=== PATIENT | female | born 1965 | race Caucasian/White ===

== ENCOUNTER 2017-04-24 17:53 | Emergency (ER) | payer OTHER ==
[2017-04-24 17:54] VITALS: BMI 25.7
[2017-04-24 18:08] VITALS: BP 110/72; PULSE 68; RESP 16; TEMP 98.6; O2SAT 100
--- NOTE | 2017-04-24 18:14 | C.PDOC ---
History Of Present Illness 04/24/2017 Shea Soto is a 51 y/o female, who is an employee at [employer] and was exposed to possible scabies four days ago. Patient currently has no symptoms, but wants medical clearance. Time Seen by Provider: 04/24/17 18:05 Chief Complaint (Nursing): Medical Clearance Past Medical History Vital Signs: Last Vital Signs Temp 98.6 F 04/24/17 17:59 Pulse 68 04/24/17 17:59 Resp 16 04/24/17 17:59 BP 110/72 04/24/17 17:59 Pulse Ox 100 04/24/17 18:22 - Medical History PMH: Chronic Pain (left knee) - [facility] Procedures BILAT ENDOS OCC TUBE NEC (10/04/14) Family History: States: Unknown Family Hx - Social History Hx Tobacco Use: Yes Hx Alcohol Use: Yes Hx Substance Use: No - Immunization History Hx Tetanus Toxoid Vaccination: No Hx Influenza Vaccination: Yes (05/2014) Hx Pneumococcal Vaccination: No Review Of Systems Constitutional: Negative for: Fever Cardiovascular: Negative for: Chest Pain Respiratory: Negative for: Shortness of Breath Gastrointestinal: Negative for: Nausea, Vomiting, Abdominal Pain Skin: Negative for: Rash Neurological: Negative for: Headache Physical Exam - Physical Exam Appears: Well, Non-toxic, No Acute Distress Skin: Normal Color, Warm, Dry, Rash, No Jaundice Head: Atraumatic, Normacephalic Eye(s): bilateral: Normal Inspection, PERRL, EOMI Nose: Normal, Epistaxis Throat: Normal Neck: Normal Cardiovascular: Rhythm Regular Respiratory: Normal Breath Sounds Gastrointestinal/Abdominal: Normal Exam Back: Normal Inspection, No CVA Tenderness Extremity: Normal ROM Neurological/Psych: Oriented x3, Normal Speech, Normal Motor, Normal Sensation, Normal Reflexes Gait: Steady ED Course And Treatment O2 Sat by Pulse Oximetry: 100 (room air) Pulse Ox Interpretation: Normal Medical Decision Making Medical Decision Making: \ Re-evaluation: Discussed results and plan with patient. Patient understands results and is agreeable with plan. Patient is stable for medical clearance and discharge. All questions answered. Disposition - Disposition Referrals: Nuzhat Cardozo MD [Staff Provider] - Disposition: HOME/ ROUTINE Disposition Time: 18:12 Condition: GOOD Additional Instructions: Follow up with the medical doctor within 1-2 days. Return if worsened. Prescriptions: Permethrin 5% [Permethrin 5% Cream] 60 gm EXT ONCE #4 tube Instructions: Scabies (ED) Forms: [facility] (Burundian) - Clinical Impression Clinical Impression: Medical assessment, Scabies exposure - Scribe Statement The provider has reviewed the documentation as recorded by the Scribe 04/24/2017 Scribe Attestation: Sahara Flores MD Scribe Attestation: All medical record entries made by the Scribe were at my direction and personally dictated by me. I have reviewed the chart and agree that the record accurately reflects my personal performance of the history, physical exam, medical decision making, and the department course for this patient. I have also personally directed, reviewed, and agree with the discharge instructions and disposition.
== END 2017-04-24 18:17 | disposition home or self-care (01) ==
LOC: C.ER 17:53
DX: Z20.7 Contact with and (suspected) exposure to pediculosis, acariasis and other infestations (principal)

== ENCOUNTER 2017-10-28 23:27 | Emergency (ER) | payer OTHER ==
[2017-10-28 23:39] VITALS: BMI 27.4
[2017-10-28] MEDS ORDERED: Bacitracin 500 Units/gm Oint Foilpak UD ONE (23:41)
[2017-10-28] MEDS ORDERED: Tetanus/Diphtheria Toxoids 0.5 ml Syringe IM ONE (23:41)
[2017-10-29] MEDS ORDERED: Tetanus/Diphtheria Toxoids 0.5 ml Syringe IM ONE
--- NOTE | 2017-10-29 00:26 | C.PDOC ---
History Of Present Illness 52 years old female brought to ED by EMS after she was bit on her right hand fingers. Patient was bitten by her daughter's dog in her house- animal is fully immunized. Denies weakness or numbness of fingers, or any other physical complaints. Patient is not up to date with Tetanus. Time Seen by Provider: 10/29/17 00:13 Chief Complaint (Nursing): Bite History Per: Patient History/Exam Limitations: no limitations Onset/Duration Of Symptoms: Hrs Current Symptoms Are (Timing): Still Present Location Of Injury: Right: Hand (Fingers) Quality Of Symptoms: Painful Severity: Moderate - Animal Bite Description Of The Attack: Approached Animal Description Of The Animal: Family Pet Reports Animal Appears: Well Reports Animal's Immunization Status: UTD Animal Control Notified: No Past Medical History Reviewed: Historical Data, Nursing Documentation, Vital Signs Vital Signs: Last Vital Signs Temp 97.9 F 10/28/17 23:50 Pulse 69 10/29/17 00:43 Resp 18 10/29/17 00:43 BP 127/85 10/28/17 23:50 Pulse Ox 97 10/29/17 00:43 - Medical History PMH: No Chronic Diseases - [facility] Procedures BILAT ENDOS OCC TUBE NEC (10/04/14) Family History: States: Unknown Family Hx - Social History Hx Tobacco Use: Yes Hx Alcohol Use: Yes Hx Substance Use: No - Immunization History Hx Tetanus Toxoid Vaccination: No Hx Influenza Vaccination: Yes (05/2014) Hx Pneumococcal Vaccination: No Review Of Systems Constitutional: Negative for: Fever, Chills, Weakness Respiratory: Negative for: Shortness of Breath Gastrointestinal: Negative for: Nausea, Vomiting, Diarrhea Musculoskeletal: Positive for: Hand Pain (right hand fingers) Neurological: Negative for: Weakness, Numbness Physical Exam - Physical Exam Appears: Non-toxic, No Acute Distress Skin: Warm, Dry, Other (2.5cm laceration to dorsal aspect of right middle finger proximal aspect; 1cm laceration to palmar aspect of right 2nd index finger proximally; No tendon injuries.) Head: Atraumatic, Normacephalic Eye(s): bilateral: Normal Inspection Oral Mucosa: Moist Neck: Supple Chest: Symmetrical, No Tenderness Cardiovascular: Rhythm Regular Respiratory: No Decreased Breath Sounds, No Rales, No Rhonchi, No Wheezing Extremity: Normal ROM, No Tenderness, No Deformity Neurological/Psych: Oriented x3, Normal Speech, Normal Sensation ED Course And Treatment Progress Note: Administered digital block to both finger. Patient was given strict wound care instructions and follow with PMD in 2 days for wound check. Wound precautions and return precautions discusssed in detail. Pt understand and agreed with plan Laceration - Laceration Repair Right 2nd index finger Wound Length (In cm): 1cm Description Of Wound: Linear Wound Cleansed With: Betadine, Sterile Saline (50ml) Anesthesia: Lidocaine 2% (nerve block) Wound Examination: Irrigated With Saline, No FB With Wound Exploration, No Tendon Injury With Wound Exploration Wound Closure: Suture (x1) Suture Technique And Material Used: Interrupted, Nylon (4.0) Wound Complexity: Simple (Well tolerated) Right 3rd finger to dorsal aspect Wound Length (In cm): 2.5cm Description Of Wound: Linear Wound Cleansed With: Betadine, Sterile Saline (50 ml) Anesthesia: Lidocaine 2% (digital nerve block) Wound Examination: Irrigated With Saline, No FB With Wound Exploration, No Tendon Injury With Wound Exploration Wound Closure: Suture (x4 ) Suture Technique And Material Used: Interrupted, Nylon (4.0) Wound Complexity: Simple (Well Tolerated) Disposition - Disposition Referrals: Nuzhat Cardozo MD [Staff Provider] - Narinder Morris MD [Staff Provider] - Disposition: HOME/ ROUTINE Disposition Time: 00:20 Condition: STABLE Additional Instructions: Please follow up with PMD in 2 days for wound check Take medications as directed Return to ER if worse Prescriptions: Amoxicillin/Clavulanate [Augmentin 875 MG-125 MG] 1 tab PO BID #14 tab DiphenhydrAMINE [Benadryl] 25 mg PO QID #20 cap Ibuprofen [Motrin] 600 mg PO Q6H #30 tab Instructions: Animal Bites (DC) Forms: [employer] (Croatian) - Clinical Impression Clinical Impression: Animal bite wound, Finger laceration - PA / DIESEL LOCOMOTIVE ENGINEER / Resident Statement MD/DO has reviewed & agrees with the documentation as recorded. - Scribe Statement The provider has reviewed the documentation as recorded by the Marianaibcharmaine Chau All medical record entries made by the Scribe were at my direction and personally dictated by me. I have reviewed the chart and agree that the record accurately reflects my personal performance of the history, physical exam, medical decision making, and the department course for this patient. I have also personally directed, reviewed, and agree with the discharge instructions and disposition.
[2017-10-29 00:31] VITALS: BP 127/85; RESP 18; TEMP 97.9
[2017-10-29 00:43] VITALS: PULSE 69; O2SAT 97
== END 2017-10-29 00:45 | disposition home or self-care (01) ==
LOC: C.ER 23:27
DX: S61.210A Laceration without foreign body of right index finger without damage to nail, initial encounter (principal); S61.212A Laceration without foreign body of right middle finger without damage to nail, initial encounter; W54.0XXA Bitten by dog, initial encounter; Y92.009 Unspecified place in unspecified non-institutional (private) residence as the place of occurrence of the external cause; Z23 Encounter for immunization

== ENCOUNTER 2017-11-04 11:10 | Emergency (ER) | payer OTHER ==
[2017-11-04 11:11] VITALS: BMI 25.7
[2017-11-04 11:22] VITALS: BP 135/87; PULSE 84; RESP 20; TEMP 98.3; O2SAT 100
--- NOTE | 2017-11-04 11:35 | C.PDOC ---
History Of Present Illness 52 year old female presents to the ED for a wound check s/p laceration repair to right 3rd finger on 10/29 after she sustained a dog bite. Patient states she has been compliant with antibiotics but is complaining of residual swelling to the finger. Otherwise, patient is feeling well and states "I don't think it's ready to come out." Patient denies fever, chills. Time Seen by Provider: 11/04/17 11:32 Chief Complaint (Nursing): Wound Check History Per: Patient History/Exam Limitations: no limitations Onset/Duration Of Symptoms: Days Ago (6) Current Symptoms Are (Timing): Still Present Location Of Injury: Right: Hand (3rd finger ) Quality Of Symptoms: Swollen Additional History Per: Patient Past Medical History Reviewed: Historical Data, Nursing Documentation, Vital Signs Vital Signs: Last Vital Signs Temp 98.3 F 11/04/17 11:21 Pulse 84 11/04/17 11:21 Resp 20 11/04/17 11:21 BP 135/87 11/04/17 11:21 Pulse Ox 100 11/04/17 23:19 - Medical History PMH: Chronic Pain (left knee) - [facility] Procedures BILAT ENDOS OCC TUBE NEC (10/04/14) Family History: States: Unknown Family Hx - Social History Hx Tobacco Use: Yes Hx Alcohol Use: Yes Hx Substance Use: No - Immunization History Hx Tetanus Toxoid Vaccination: No Hx Influenza Vaccination: Yes (05/2014) Hx Pneumococcal Vaccination: No Review Of Systems Skin: Positive for: Other (wound check ) Physical Exam - Physical Exam Appears: Non-toxic, No Acute Distress Skin: Normal Color, Warm, Dry, Other (sutures intact on dorsal phalanx of right 3rd finger proximal aspect and ramos aspect of right 2nd finger. no erythema, no dehiscence ) Extremity: Normal ROM, Capillary Refill (less than 2 seconds ) Neurological/Psych: Oriented x3, Normal Speech, Normal Cognition, Normal Sensation ED Course And Treatment O2 Sat by Pulse Oximetry: 100 (on RA) Pulse Ox Interpretation: Normal Progress Note: Patient advised finger splint to limit risk of dehiscence. Splint aplied by certified hyperbaric technician and checked by me. On reassessment, patient is resting comfortably, showing no signs of distress and is stable for discharge. Patient advised to return on 11/07 for suture removal. Progress - Data Reviewed Data Reviewed: Old records Disposition Counseled Patient/Family Regarding: Diagnosis, Need For Followup - Disposition Referrals: [facility] [Provider Group] Disposition: HOME/ ROUTINE Disposition Time: 11:36 Condition: GOOD Prescriptions: Bacitracin [Bacitracin Opht OINT] 1 applic OD Q4 #1 tube Forms: [employer] (Macedonian), Work Excuse - Clinical Impression Clinical Impression: Visit for wound check - Scribe Statement The provider has reviewed the documentation as recorded by the Scribe (Lynn De Los Santos) Provider Attestation: All medical record entries made by the Scribe were at my direction and personally dictated by me. I have reviewed the chart and agree that the record accurately reflects my personal performance of the history, physical exam, medical decision making, and the department course for this patient. I have also personally directed, reviewed, and agree with the discharge instructions and disposition. Orthopedic Care Application Of:: Finger Splint
== END 2017-11-04 12:04 | disposition home or self-care (01) ==
LOC: C.ER 11:10
DX: S61.210D Laceration without foreign body of right index finger without damage to nail, subsequent encounter (principal); S61.212D Laceration without foreign body of right middle finger without damage to nail, subsequent encounter; W54.0XXD Bitten by dog, subsequent encounter

== ENCOUNTER 2017-11-06 13:45 | Emergency (ER) | payer OTHER ==
[2017-11-06 13:45] VITALS: BMI 25.7
[2017-11-06 13:53] VITALS: BP 132/75; PULSE 82; RESP 17; TEMP 98.7; O2SAT 99
--- NOTE | 2017-11-06 13:55 | C.PDOC ---
History Of Present Illness Patient is a 52 y/o female who presents to the ED for suture removal. Patient had laceration repair on 10/30 to the top of right middle finger and bottom of right second. No other physical complaints at this time. Time Seen by Provider: 11/06/17 13:47 History Per: Patient History/Exam Limitations: no limitations Quality Of Symptoms: denies: Painful Recent travel outside of the [place]: No Past Medical History Reviewed: Historical Data, Nursing Documentation, Vital Signs Vital Signs: Last Vital Signs Temp 98.7 F 11/06/17 13:47 Pulse 82 11/06/17 13:47 Resp 17 11/06/17 13:47 BP 132/75 11/06/17 13:47 Pulse Ox 99 11/06/17 13:55 - Medical History PMH: No Chronic Diseases, Chronic Pain (left knee) Surgical History: No Surg Hx - [facility] Procedures BILAT ENDOS OCC TUBE NEC (10/04/14) Family History: States: Unknown Family Hx - Social History Hx Tobacco Use: Yes Hx Alcohol Use: Yes Hx Substance Use: No - Immunization History Hx Tetanus Toxoid Vaccination: No Hx Influenza Vaccination: Yes (05/2014) Hx Pneumococcal Vaccination: No Review Of Systems Skin: Positive for: Other (suture removal to right middle finger and right second finger) Physical Exam - Physical Exam Appears: No Acute Distress Skin: Normal Color, Warm, Dry, Other (minimal edema to sutured area; no erythema ) ED Course And Treatment O2 Sat by Pulse Oximetry: 99 Progress Note: Patient tolerated suture removal well and is stable for discharge. Disposition Counseled Patient/Family Regarding: Diagnosis, Need For Followup - Disposition Referrals: YOUR,PMD [Other] Narinder Morris MD [Staff Provider] - Disposition: HOME/ ROUTINE Disposition Time: 13:55 Condition: IMPROVED Instructions: Stitches Removal Forms: [employer] (Ugandan) - Clinical Impression Clinical Impression: Visit for suture removal - Scribe Statement The provider has reviewed the documentation as recorded by the Scribe Suzanna Ron All medical record entries made by the Scribe were at my direction and personally dictated by me. I have reviewed the chart and agree that the record accurately reflects my personal performance of the history, physical exam, medical decision making, and the department course for this patient. I have also personally directed, reviewed, and agree with the discharge instructions and disposition. Suture Removal/Wound Check - Time Time: 14:00 - Historian Historian: Patient - Chief Complaints Chief complaint: Suture removal - Notes: Notes:: Sutures removed without difficulty.
== END 2017-11-06 14:11 | disposition home or self-care (01) ==
LOC: C.ER 13:45
DX: Z48.02 Encounter for removal of sutures (principal)